=== PATIENT | male | born 1950 | race African-American/Black ===

== ENCOUNTER → 2017-02-09 | Outpatient (CLI) | payer MEDICARE, OTHER ==
--- NOTE | 2017-02-09 15:10 | RAD ---
APPROVED REPORT Test Type: Exercise Stress Nurse/Tech: Yana Pulliam R.N. 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 Cardiac History: SEE EMR Medications: SEE EMR Medical History: SEE EMR Resting ECG: SB Resting Heart Rate: 54 bpm Resting Blood Pressure: 146/85mmHg Pretest Chest Pain: None Nurse/Tech Notes S1S2, lungs CTA, denied chest pain and SOA. Consent: The procedure was explained to the patient in lay terms. Informed consent was witnessed. Michael eout was entered into [employer]. History and Stress Test performed by Yana Pulliam R.N. Stress Symptoms SOA. POST EXERCISE Reason for Termination: Infusion complete Target HR: 130 Max HR: 157 bpm 120% of Maximum Predicted HR: 153 bpm Exercise duration: 5:29 min:sec, 2 Stage Exercise capacity: 10.0METs Max Blood Pressure: 172/88mmHg Blood Pressure response to exercise: Normal blood pressure response during stress. Heart Rate response to exercise: Normal Chest Pain: No. Arrhythmia: No. ST Change: No. INTERPRETATION Stress EKG Conclusion: No acute changes were noted. Imaging Protocol IMAGE PROTOCOL: Rest Tc-99m/stress Tc-99m 1 day Rest: Stress: Viability: Radiopharm.Tc99m [id number] Sestamibi Dose12.3mCi 33mCi Duration 60min. 60min. Img Date 02/09/2017 02/09/2017 Inj-Img [id number]. 60min. Rest Admin Site:IV - Right ForearmAdministrator:CELI Marinelli Stress Admin Site: IV - Right ForearmAdministrator: RT Tae (R)(N) STRESS DATA End Diast. Vol.104.0mlAv. Heart Rate62.0bpm LVEDV index BSA2.0mlCardiac Output0.1L/min End Syst. Vol.37.0mlCO Index BSA4.2L/min LVESV index BSA1.0mlMyocardial Udky029.0g Eject. Llwykhoc91.0% Stress Rates Pk. Fill Rate2.21EDV/secLVtime Pk. Fill 148.09msec Pk. Empty Rate3.25ESV/secLVtime Pk. Enwod796.62msec 1/3 Pk. Fill1.47EDV/sec Stress Scores Regional WT0.00Summed WT4.00 Regional WM0.00Summed WM0.00 The rest and stress images show normal perfusion, normal contraction and thickening. LV Perf. Quant 17 Seg. SSS4.00 17 Seg. SRS6.00 17 Seg. SDS1.00 Stress Defect Extent (% LAD)1.90Rest Defect Extent (% LAD)10.60Rev. Defect Extent (% LAD)0.00 Stress Defect Extent (% LCX) 6.30Rest Defect Extent (% LCX)8.80Rev. Defect Extent (% LCX)0.00 Stress Defect Extent (% RCA)8.90Rest Defect Extent (% RCA)0.00Rev. Defect Extent (% RCA)0.00 Stress Defect Extent (% VASILIY)7.40Rest Defect Extent (% VASILIY)8.50Rev. Defect Extent (% VASILIY)0.20 Other Information Quality:Average Risk Assessment: Low Risk Conclusion 1. No evidence of stress induced EKG changes, limited evaluation due to artifact on the EKG 2. Normal perfusion at stress/rest. 3. Normal EF at > 65% 4. Diaphragmatic attenuation artifact noted on the inferior wall. 5. Low risk study
== END | disposition home or self-care (01) ==
LOC: NM 09:08
PROVIDERS: ATTEND Internal Medicine Cardiovascular Disease
DX: I20.8 Other forms of angina pectoris (principal); J45.909 Unspecified asthma, uncomplicated; I10 Essential (primary) hypertension; Z79.01 Long term (current) use of anticoagulants; Z87.891 Personal history of nicotine dependence
CPT/HCPCS: 78452; 93017; 96374; 96376; A9500

== ENCOUNTER → 2017-09-01 | Day surgery (SDC) | payer MEDICARE, OTHER ==
[~2017-09-01] MED LIST: ALFU10TA PO; ASPI-630 PO; ATOR20TA PO; FLUT9.9S NS; HYDROmorphone 2 MG/ML VIAL IV PRN; IPRA0.2S5 NEB; IV RINGERS,LACTATED 1000ML 1,000 ML IV SCH; LIDOCAINE 1% PF 2 ML VIAL. ID PRN; LISI40TA PO; LORA10TA68 PO; MONT10TA9 PO; MORPHINE SULFATE 4 MG/ML DISP.SYRIN. IV PRN; NIFE30TA38 PO; ONDANSETRON PF 4 MG/2 ML VIAL. IV PRN; PROAIR HFA8.5 GM INH; PROCHLORPERAZINE 10 MG/2 ML VIAL. IV PRN; PROPOFOL 40 ML IV ONE; RANI150T6 PO; XOPENEX1.25 MG/3 NEB; fentaNYL PF VIAL 100 MCG/2 ML VIAL IV PRN
[2017-09-01 08:40] VITALS: BP 116/77
== END | disposition home or self-care (01) ==
LOC: ENDOS 06:58
PROVIDERS: ATTEND Internal Medicine Gastroenterology
DX: Z09 Encounter for follow-up examination after completed treatment for conditions other than malignant neoplasm (principal); Z86.010 Personal history of colon polyps; K64.0 First degree hemorrhoids; K57.30 Diverticulosis of large intestine without perforation or abscess without bleeding; Z80.0 Family history of malignant neoplasm of digestive organs; E78.00 Pure hypercholesterolemia, unspecified; I10 Essential (primary) hypertension; K21.9 Gastro-esophageal reflux disease without esophagitis; Z88.8 Allergy status to other drugs, medicaments and biological substances
CPT/HCPCS: 45378; J2704

== ENCOUNTER 2018-03-27 09:23 | Emergency (ER) | payer MEDICARE, OTHER ==
[2018-03-27] MEDS: PROPARACAINE 0.5% OPHTH SOLUTION 15ML BOTTLE. OD (10:00)
[2018-03-27] MEDS ORDERED: TETRACAINE 0.5% OPHTH SOLUTION 4ML BOTTLE. (10:06)
[2018-03-27] MEDS: FLUORESCEIN OPHTH TEST STRIP. OD (10:18)
[2018-03-27] MEDS: TETRACAINE 0.5% OPHTH SOLUTION 4ML BOTTLE. OU (10:19)
== END 2018-03-27 11:00 | disposition home or self-care (01) ==
LOC: ER 09:23
DX: H10.9 Unspecified conjunctivitis (principal); J45.909 Unspecified asthma, uncomplicated; I10 Essential (primary) hypertension; Z88.8 Allergy status to other drugs, medicaments and biological substances
CPT/HCPCS: 99283

== ENCOUNTER 2019-01-02 16:28 | Emergency (ER) | payer MEDICARE, OTHER ==
[2018-03-27 10:49] VITALS: BP 153/77
[~2019-01-02] VITALS: Ht 172.7 cm; Wt 78.0 kg
[~2019-01-02 16:28] MED LIST changes: +ALBU2.5V8 INH; -HYDROmorphone 2 MG/ML VIAL IV PRN; -IV RINGERS,LACTATED 1000ML 1,000 ML IV SCH; -LIDOCAINE 1% PF 2 ML VIAL. ID PRN; +LISI-130 PO; -LISI40TA PO; -MORPHINE SULFATE 4 MG/ML DISP.SYRIN. IV PRN; -ONDANSETRON PF 4 MG/2 ML VIAL. IV PRN; -PROAIR HFA8.5 GM INH; -PROCHLORPERAZINE 10 MG/2 ML VIAL. IV PRN; +PROP10DR3 EACHEYE; -PROPOFOL 40 ML IV ONE; +RANI-376 PO; -RANI150T6 PO; -fentaNYL PF VIAL 100 MCG/2 ML VIAL IV PRN
--- NOTE | 2019-01-02 17:36 | RAD ---
CHEST PA LATERAL History: Productive cough, yellow sputum for 5 days, history of hypertension and asthma Comparison: March 28, 2005 Findings: 2 views of the chest are submitted. There is no infiltrate, pneumothorax, or effusion. The cardiac silhouette is within normal limits in size. The trachea is in the midline. No acute osseous abnormality is identified. Impression: 1. There is no evidence of acute cardiopulmonary disease. Electronically signed by: Kye Conteh MD (01/02/2019 5:33 PM) [facility]
--- NOTE | 2019-01-02 17:53 | PHYS DOC ---
Past Medical History Past Medical History: Asthma, Hypertension (AMEENA ADAMS APRN) Past Surgical History: Other Additional Past Surgical Histo: Hernia repair, sinus (AMEENA ADAMS APRN) Alcohol Use: Occasionally Drug Use: None (AMEENA ADAMS APRN) Adult General Chief Complaint Chief Complaint: FLU SYMPTOM HPI HPI Patient is a 68 year old male with history of hypertension and asthma who presents to the ED today complaining of cough productive in nature, body aches, chills, congestion, symptoms for 5 days. Also complaining of subjective fevers. (AMEENA ADAMS APRN) Review of Systems Review of Systems Constitutional: Reports subjective fevers Eyes: Denies change in visual acuity, redness, or eye pain [] HENT: Reports nasal congestion, denies sore throat [] Respiratory: Reports cough, denies shortness of breath [] Cardiovascular: No additional information not addressed in HPI [] GI: Denies abdominal pain, nausea, vomiting, bloody stools or diarrhea [] : Denies dysuria or hematuria [] Musculoskeletal: Denies back pain or joint pain [] Integument: Denies rash or skin lesions [] Neurologic: Denies headache, focal weakness or sensory changes [] [] All other systems were reviewed and found to be within normal limits, except as documented in this note. (AMEENA ADAMS APRN) Allergies Allergies Allergies Coded Allergies Type Severity Reaction Last Updated Verified bisoprolol Allergy Intermediate 09/01/17 Yes hydrochlorothiazide Allergy Intermediate 09/01/17 Yes (ROM WALSH DO) Physical Exam Physical Exam Constitutional: Well developed, well nourished, no acute distress, non-toxic appearance. [] HENT: Normocephalic, atraumatic, bilateral external ears normal, oropharynx moist, no oral exudates, nose normal. [] Eyes: PERRLA, EOMI, conjunctiva normal, no discharge. [] Neck: Normal range of motion, no tenderness, supple, no stridor. [] Cardiovascular:Heart rate regular rhythm, no murmur [] Lungs & Thorax: Diminished breath sounds to posterior lung bases Abdomen: Bowel sounds normal, soft, no tenderness, no masses, no pulsatile masses. [] Skin: Warm, dry, no erythema, no rash. [] Back: No tenderness, no CVA tenderness. [] Extremities: No tenderness, no cyanosis, no clubbing, ROM intact, no edema. [] Neurologic: Alert and oriented X 3, normal motor function, normal sensory function, no focal deficits noted. [] Psychologic: Affect normal, judgement normal, mood normal. [] (AMEENA ADAMS APRN) Current Patient Data Vital Signs Vital Signs Date Time Temp Pulse Resp B/P (MAP) Pulse Ox O2 Delivery O2 Flow Rate FiO2 01/02/19 16:51 97.9 107 18 126/82 (97) 100 Room Air 97.9 (ROM WALSH DO) Lab Values Laboratory Tests Test 01/02/19 16:44 Influenza Type A Antigen Negative (NEGATIVE) Influenza Type B Antigen Negative (NEGATIVE) (ROM WALSH DO) Lab Values Laboratory Tests Test 01/02/19 16:44 Influenza Type A Antigen Negative (NEGATIVE) Influenza Type B Antigen Negative (NEGATIVE) (AMEENA ADAMS APRN) EKG EKG [] (AMEENA ADAMS APRN) Radiology/Procedures Radiology/Procedures [] (AMEENA ADAMS APRN) Course & Med Decision Making Course & Med Decision Making Pertinent Labs and Imaging studies reviewed. (See chart for details) This is a 68-year-old male patient presenting to the ED today with subjective fevers, cough, nasal congestion, body aches, symptoms for 5 days. Patient is afebrile in the ED. Negative rapid influenza A or B. chest x-ray interpreted by Dr. Ventura was noted for RLL pneumonia, radiologist read the x-ray as negative though there is consolidation noted on the right lower lung region. Patient is in no distress. Discharged with doxycycline. Follow-up with primary care doctor in the course of this week or next week. (AMEENA ADAMS APRN) Dragon Disclaimer Dragon Disclaimer This electronic medical record was generated, in whole or in part, using a voice recognition dictation system. (AMEENA ADAMS APRN) Departure Departure Impression: Primary Impression: Community acquired pneumonia Additional Impressions: Fever Upper respiratory infection Disposition: 01 HOME, SELF-CARE Condition: STABLE Referrals: ROM RANGEL MD (PCP) follow up next week Patient Instructions: Pneumonia, Adult, [id number] Additional Instructions: You were evaluated in the emergency room and noted to have pneumonia. We put you on antibiotics, ensure you complete them. Your influenza test is negative. Follow-up with your doctor in the course of this week or next week. Scripts Promethazine Hcl/Codeine (PROMETHAZINE-CODEINE SYRUP) 118 Ml Syrup 5 ML PO Q4-6HRS, #60 ML Prov: AMEENA ADAMS ATMOSPHERIC PHYSICIST 01/02/19 Doxycycline Hyclate (DOXYCYCLINE HYCLATE) 100 Mg Capsule 1 CAP PO BID, #14 CAP Prov: MEKHIJAMESAMEENA SMITHN 01/02/19 Attending Signature Attending Signature I have reviewed the PA/FOURTH HAND's note and plan of care. I was available for consultation as needed during the patient's visit in the emergency department. I agree with the clinical impression, plan, and disposition. (ROM WALSH DO) Problem Qualifiers Primary Impression: Community acquired pneumonia Laterality: right Lung location: lower lobe of lung Qualified Codes: J18.1 - Lobar pneumonia, unspecified organism Additional Impressions: Fever Fever type: unspecified Qualified Codes: R50.9 - Fever, unspecified Upper respiratory infection URI type: unspecified URI Qualified Codes: J06.9 - Acute upper respiratory infection, unspecified MEKHIJAMESAMEENA APRN Jan 02, 2019 17:53 ROM WALSH DO Jan 03, 2019 04:04
[2019-01-02 18:25] LABS: INFLUENZA A PATIENT NEGATIVE (NEGATIVE); INFLUENZA B PATIENT NEGATIVE (NEGATIVE)
[2019-01-02] MEDS ORDERED: DOXY100C2 PO (18:37)
[2019-01-02] MEDS ORDERED: PROM118S5 PO (18:37)
== END 2019-01-02 18:47 | disposition home or self-care (01) ==
LOC: ER 16:28
DX: J18.1 Lobar pneumonia, unspecified organism (principal); J06.9 Acute upper respiratory infection, unspecified; I10 Essential (primary) hypertension; J45.909 Unspecified asthma, uncomplicated; Z88.8 Allergy status to other drugs, medicaments and biological substances
CPT/HCPCS: 71046; 87804; 99284

== ENCOUNTER → 2019-08-02 | Outpatient (CLI) | payer MEDICARE, OTHER ==
[2019-01-02 16:51] VITALS: BP 126/82
[~2019-08-02] MED LIST changes: +DOXY100C2 PO; +IOHEXOL 300 MG/ML 100ML VIAL. IV ONE; +MONT10TA49 PO; -MONT10TA9 PO; +NIFE-11 PO; -NIFE30TA38 PO; +PROM118S5 PO
--- NOTE | 2019-08-02 16:00 | KCIC ---
Examination: CT SOFT TISSUE NECK WO/W CONT History: Mass in the right sternoclavicular joint region Comparison/Correlation: None Findings: Axial images of the neck were obtained prior to and following IV contrast. Sagittal and coronal reformatted images were provided. A marker was placed at the right sternoclavicular joint region where a palpable abnormalities reported. Imaging was performed from the level of the supraorbital region to the aorticopulmonary window. The globes and optic nerves are unremarkable. Patchy opacification of ethmoid air cells is noted. Mucosal thickening of maxillary sinuses noted. Small defect involving the medial wall of the right and medial wall of the left maxillary sinus noted. Partial opacification of sphenoid sinuses is noted. Parotid and submandibular glands are unremarkable. Streak artifact due to dental amalgam may limit assessment. The pharynx is symmetric. Epiglottis is normal. True and false cords are symmetric. Thyroid gland is unremarkable. Multiple lymph nodes bilaterally are seen but are not enlarged. These are especially noted in the level 2A region, submental region, and posterior triangle. At the right sternoclavicular joint, there is a nonenhancing fluid collection measuring 1.8 cm longitudinal by 1.7 cm transverse by 3 cm anteroposterior. This appears represent a joint effusion. This corresponds to the site of the palpable abnormality. A smaller joint effusion is noted involving the left sternoclavicular joint. Degenerative narrowing of the right sternoclavicular joint is noted with subchondral cystic change. Degenerative changes of the left sternoclavicular joint are present to lesser degree. Partially visualized upper lung [place] are unremarkable. The atlantoaxial joint degenerative remodeling is present. Mild disc space narrowing at C3-4 and moderate C4-5 disc space narrowing is evident. C6-7 mild disc space narrowing is present. Impression: Bilateral sternoclavicular joint effusions are present greater on the right. This corresponds to the level of the reported palpable abnormality. No enhancing solid suspicious component identified. Electronically signed by: Dimitri Burns MD (08/02/2019 3:57 PM) [facility]
== END | disposition home or self-care (01) ==
LOC: KCIC CT 08:50
PROVIDERS: ATTEND Family Medicine
DX: M25.412 Effusion, left shoulder (principal); M25.411 Effusion, right shoulder; M48.02 Spinal stenosis, cervical region; M25.812 Other specified joint disorders, left shoulder; J34.89 Other specified disorders of nose and nasal sinuses; J45.909 Unspecified asthma, uncomplicated; I10 Essential (primary) hypertension; Z79.01 Long term (current) use of anticoagulants; Z88.8 Allergy status to other drugs, medicaments and biological substances; Z87.891 Personal history of nicotine dependence
CPT/HCPCS: 70492; Q9967